=== PATIENT | female | born 1995 | race Caucasian/White ===

== ENCOUNTER 2025-01-27 08:08 | Emergency (ER) | payer BC, SELFPAY ==
[2025-01-27 08:21] VITALS: BP 114/73; PULSE 81; RESP 16; TEMP 36.7; O2SAT 100
--- NOTE | 2025-01-27 08:36 | ED_ITS ---
HPI - Dental/Oral General Chief complaint: Dental/Oral Stated complaint: tooth pain Time Seen by Provider: 01/27/25 08:12 Source: patient Mode of arrival: ambulatory Limitations: no limitations History of Present Illness HPI Narrative: 29-year-old female presents to [facility] with complaints of pain and swelling to her right bottom wisdom tooth region for the past 2 days. Patient reports that she has a history of infection to another wisdom tooth in the past. Patient has been taking kkau-byg-wloewtd Motrin and using oragel with minimal relief. patient denies fever, body aches, chills, nausea vomiting or diarrhea. Patient denies recent surgeries. Patient does vape. Patient reports that she does have an established dentist and will call them next week for an appointment. [facility] 01/11/2025 Location: Tooth # (32) Onset (ago): day(s) (2) Exacerbating factors: chewing and cold Treatment prior to arrival: oral analgesic Related Data Home Medications ?Medication ?Instructions ?Recorded ?Confirmed ?Last Taken ?Type buprenorphine 8 mg-naloxone 2 mg 1 tablet sublingual DAILY 01/27/25 Unknown History sublingual tablet Allergies Allergy/AdvReac Type Severity Reaction Status Date / Time No Known Allergies Allergy Unverified 01/27/25 08:16 Review of Systems Constitutional: Constitutional: Denies chills, Denies fatigue, Denies fever(s) and Denies weakness ENT: Denies vertigo, Denies dizziness, Denies nasal congestion and Denies sore throat Comments: dental pain and swelling Cardiovascular: Cardiovascular: Denies chest pain Respiratory: Respiratory: Denies cough, Denies dyspnea and Denies wheezing Gastrointestinal: Gastrointestinal: Denies diarrhea, Denies nausea and Denies vomiting Integumentary/Breasts: Skin/Breast: Denies rash Neurologic: Denies headache(s) PMFSH Comments At time of signature, I agree with nursing past medical, surgical, social and family history. There is no relevant family history pertinent to the presenting complaint. Exam Const: General: healthy appearing and no acute distress Nutritional Appearance: well nourished Orientation/consciousness: patient oriented x3 Limitations: no limitations HENMT: Head: normal to inspection Mouth: Yes Normal oral and palatal mucosa present, Yes lip normal and Yes moist mucous membranes Teeth and gingiva: abnormal tooth and associated gingiva ( erythema and swelling noted to Right lower wisdom tooth) Other: right lower wisdom tooth appears impacted. There is no obvious abscess noted Eyes: Conjunctivae: conjunctivae normal Neck: Neck: normal visual inspection Resp: Effort & Inspection: normal respiratory effort and not labored Auscultation: clear to auscultation bilaterally, no crackles, no rales, no rhonchi and no wheezes Cardio: Rate: regular rate Rhythm: regular rhythm Heart sounds: no murmurs Skin: General skin exam: normal color Rashes: no rashes Neuro: General: patient oriented x3 and moves all extremities Speech: normal speech Gait exam (Neuro): Normal gait present Extrem: General: normal to inspection Psych: Affect: normal affect Attitude: cooperative Course Course Level of Care: Express Care Visit Vital Signs Vital signs: Vital Signs Temperature 36.7 C 01/27/25 08:21 Pulse Rate 81 01/27/25 08:21 Respiratory Rate 16 01/27/25 08:21 Blood Pressure 114/73 01/27/25 08:21 Pulse Oximetry 100 01/27/25 08:21 Oxygen Delivery Room Air 01/27/25 08:21 Temperature 36.7 C 01/27/25 08:21 Pulse Rate 81 01/27/25 08:21 Respiratory Rate 16 01/27/25 08:21 Blood Pressure 114/73 01/27/25 08:21 Pulse Oximetry 100 01/27/25 08:21 Oxygen Delivery Room Air 01/27/25 08:21 MDM - Dental/Oral MDM Narrative Medical decision making narrative: discussed diagnosis with patient and educated patient follow-up with dentist as soon as possible next week. Instructed patient to proceed to the emergency room if symptoms worsen. Instructed patient to continue to alternate Motrin and Tylenol and to do warm saltwater gargles a few times a day. Differential Diagnosis Differential diagnosis: Likely gingival abscess, dental caries and dental abscess Critical Care Time Critical Care Time Critical Care Time: No Discharge Plan Discharge Clinical Impression: Toothache Patient Disposition: Home Condition: Stable Instructions: Antibiotic Form, Toothache (ED) Additional Instructions: Call dentist next week for an appointment Alternate Motrin and Tylenol as needed Complete warm salt water gargles multiple times per day monitor symptoms very closely and proceed to the emergency room if symptoms worsen Patient Language: Maltese Prescriptions: New penicillin V potassium 500 mg tablet 500 mg PO TID 10 Days Qty: 30 0RF No Action buprenorphine-naloxone 8-2 mg tablet, sublingual 1 tablet sublingual DAILY Follow-up/Referrals: PHYSICIAN,MANAGEMENT PLANNER [Primary Care Provider] - Stand Alone Forms: Work/School Release IP Time of Disposition: 08:44
== END 2025-01-27 08:48 | disposition home or self-care (01) ==
PROVIDERS: Emergency Provider Nurse Practitioner Family
DX: K08.89 Other specified disorders of teeth and supporting structures (principal); Z79.899 Other long term (current) drug therapy
CPT/HCPCS: 99203; G0463